=== PATIENT | female | born 1960 | race Hispanic/Latino ===

== ENCOUNTER 2017-04-26 09:26 | Outpatient (CLI) | payer OTHER | END 2017-04-26 09:27 | disposition home or self-care (01) | LOC: BICULT 09:26 | PROVIDERS: ATTEND Family Medicine | DX: D25.9 Leiomyoma of uterus, unspecified (principal) | CPT/HCPCS: 76856 ==

== ENCOUNTER 2017-05-05 12:53 | Outpatient (CLI) | payer OTHER | END 2017-05-05 12:54 | disposition home or self-care (01) | LOC: BICMAMMO 12:53 | PROVIDERS: ATTEND Family Medicine | DX: Z12.31 Encounter for screening mammogram for malignant neoplasm of breast (principal) | CPT/HCPCS: 77063; 77067 ==

== ENCOUNTER 2017-07-20 08:30 | Inpatient (IN) | payer OTHER ==
[2017-07-20 09:00] VITALS: BMI 37.5
[2017-07-27] MEDS ORDERED: Sodium Chloride 0.9% 100 ML ONE (05:54)
[2017-07-27] MEDS ORDERED: Levofloxacin 500 mg/D5W 100 ml Premix Bag ONE (05:54)
[2017-07-27] MEDS ORDERED: Fentanyl 100 MCG/2 ML VIAL ONE ×2 (06:13→07:43)
[2017-07-27] MEDS ORDERED: Midazolam HCl 2 mg/2 ml Vial ONE (06:13)
[2017-07-27] MEDS ORDERED: Vancomycin HCl 1.5 GM in Sodium Chloride 0.9% 250 ML 300 ML IVPB SCH ×2 (06:15→18:00)
[2017-07-27] MEDS ORDERED: HYDROcodone/Acetaminophen 10/325 mg Tablet PO PRN ×2 (06:57)
[2017-07-27] MEDS ORDERED: Promethazine HCl 25 MG/ML VIAL IM PRN ×3 (06:57→08:43)
[2017-07-27] MEDS ORDERED: Zolpidem Tartrate 5 MG TAB PO PRN ×2 (06:57→07:02)
[2017-07-27] MEDS ORDERED: traMADol HCl 50 MG TAB PO PRN ×3 (06:57→07:02)
[2017-07-27] MEDS ORDERED: Fentanyl 100 MCG/2 ML VIAL IV PRN (06:57)
[2017-07-27] MEDS ORDERED: Ondansetron HCl/PF 4 MG/2 ML Vial IVP PRN ×3 (06:57→08:43)
[2017-07-27] MEDS ORDERED: Bupivacaine 0.5% 50 ML in Sodium Chloride 0.9% 50 ML NERVE BLCK SCH (06:57)
[2017-07-27] MEDS ORDERED: Acetaminophen 325 MG TAB PO PRN (07:02)
[2017-07-27] MEDS ORDERED: Fentanyl 100 MCG/2 ML VIAL SLOW IVP PRN ×2 (07:02)
[2017-07-27] MEDS ORDERED: diphenhydrAMINE 25 MG CAP PO PRN (07:02)
[2017-07-27] MEDS ORDERED: Tranexamic Acid 1,000 MG in Sodium Chloride 0.9% 100 ML IVPB SCH (07:15)
[2017-07-27] MEDS ORDERED: Promethazine HCl 25 MG/ML VIAL SLOW IVP PRN (08:43)
--- NOTE | 2017-07-27 09:30 | OP ---
DATE OF PROCEDURE: 07/27/2017 PREOPERATIVE DIAGNOSIS: Degenerative joint disease left knee. POSTOPERATIVE DIAGNOSIS: Degenerative joint disease left knee. SURGEON: Ten Jarrett M.D. AVIATION ENGINEER: Alexey Fortune PA-C. BLOOD LOSS: Minimal. SPECIMEN: None. DRAINS: None. COMPLICATIONS: None. TITLE OF PROCEDURE: Left total knee replacement using [place] [employer] 3 femur, 3 tibia, 9 mm CSX3 polyethylene, and A27 patella. PROCEDURE IN DETAIL: After informed consent was obtained in the preoperative holding area. The tanner ent was taken to the operative suite where general anesthesia was induced. Once adequate level of ge neral anesthesia was obtained, the patient was positioned and a well-padded tourniquet was placed nelson und the left proximal thigh. The left lower extremity was then prepped and draped in the usual steri le fashion. Prior to exsanguination, a time out was called and all members of the surgical team agre ed upon site, surgeon, and patient. The extremity was then exsanguinated and the tourniquet was rais ed. A midline longitudinal incision was then made directly over the patella extending two fingerbrea dths above the superior pole of the patella and two fingerbreadths inferior to the inferior patellar pole of the patella. Deeper subcutaneous layers were dissected sharply and local bleeding was contro lled with Bovie electrocautery. A quad tendon longitudinal split was then made sharply and a median parapatellar arthrotomy was carried out both sharp and with Bovie electrocautery, carried down to one fingerbreadth medial to the tibial tubercle. The knee was then placed into flexion and the patella was everted nicely, and a copious fat pad ectomy was performed allowing for greater exposure of the t ibia. The computer-assisted distal femoral fiducial was then placed and pinned firmly, and the dista l femoral cutting guide was pinned firmly into place. The oscillating saw was then used to remove th e appropriate amount of bone. The 4-in-1 cutting block was then placed on the distal femur and the o scillating saw was used to remove the appropriate amount of bone off of the anterior, posterior, and chamfer cuts. After completion of bone cuts, the anterior cruciate ligament was resected sharply and the posterior cruciate ligament retractor was placed and the tibia was subluxed for better exposure. Partial meniscectomies were carried out, and the tibial computer-assisted fiducial was pinned, and the cutting guide was placed. Oscillating saw was then used to remove the bone with Hohmann retracto rs used to take care and protect the collateral ligaments. After the tibial resection was performed, a laminar pairing machine operator was placed in between the freshened bone cuts. The knee placed at 90 degrees and further bilateral meniscectomies were carried out, and the curved osteotome and curettage was used t o remove any excess bone spurs in the posterior compartment. The trial femoral component, tibial bas eplate were placed with the appropriate polyethylene trial insert with an appropriate polyethylene sp acer and patellar button. The knee was taken through full range of motion with flexion and extension from 0-90 degrees and patellar broach squarely in the trochlea without any squinting or subluxation noted. The knee was also stable to varus and valgus stressing at 0, 15, 45, and 90 degrees of flexio n. The drawer was negative. All trial components were then removed and the keel punch was used to pr ovide the appropriate defect in the tibia with a mallet. The freshened bone cuts were copiously irri gated with pulsatile lavage of about 1-1/2 liters to remove all excess debris. The freshened bone cu ts were then dried and with suction and lap sponge. The knee was placed in flexion and retractors we re placed to provide access to all bone cuts. Tobramycin impregnated methyl methacrylate cement was then placed on the freshened bone cuts and implants which were malleted firmly into place. Curettage and Graham elevators were used to remove any excess bone cement. The knee was placed into full exten iglesia and the patellar button was placed under compression, and the cement was allowed to cure. Once completed, the components were again taken through full range of motion and copious irrigation of the knee was carried out with another liter of normal saline. All components were inspected fully with full range of motion and varus and valgus stressing. There was no laxity noted and full extension was observed clinically. Primary closure was accomplished with #2 interrupted Vicryl stitch of the arth rotomy defect. This was oversewn with a #2 running Quill barbed stitch. The gravitational platelet system was then injected into the arthrotomy prior to closure. The subcutaneous layer was then close d with a running 0 barbed Monocryl stitch and skin closure accomplished with a running subcuticular 3 -0 Monocryl barbed Quill stitch and augmented with cement on the skin. Tourniquet was lowered. Good spontaneous return of distal pulses was noted clinically and a sterile dressing was applied to the i ncision. The procedure was terminated without any complications. The patient was awakened in the op erative suite and the tourniquet was removed, and the patient was taken to the recovery room in stabl e condition.
[2017-07-27] MEDS: Aspirin 81 mg Enteric Coated Tablet PO SCH ×2 (10:13→21:12)
[2017-07-27] MEDS: Ferrous Gluconate 324 MG TAB PO SCH ×2 (10:13→21:12)
[2017-07-27] MEDS: Sodium Chloride 0.9% 1,000 ML IV SCH ×2 (10:13→15:49)
[2017-07-27] MEDS: Loratadine 10 MG TAB PO SCH (10:13)
[2017-07-27] MEDS: Calcium Carbonate + Vit D 1 TAB PO SCH ×2 (10:13→21:12)
[2017-07-27] MEDS: Multivitamin W/ Minerals 1 TAB PO SCH (10:14)
[2017-07-27] MEDS: Senokot S 8.6-50 MG TAB PO SCH ×2 (10:14→21:13)
--- NOTE | 2017-07-27 10:17 | RAD ---
TWO VIEWS LEFT KNEE: Date: 07-27-17 History: Post-operative left total knee prosthesis. Comparison: 08-27-16 FINDINGS: There has been interval post-surgical changes related to placement of left total knee prosthesis. No hardware complication is seen. Subcutaneous edema and emphysema are seen about the knee related to po st-surgical change. There is no fracture, dislocation, or other osseous abnormality. IMPRESSION: Post-surgical changes related to recent placement of left total knee replacement. POS: KELL
[2017-07-27] MEDS ORDERED: Dextrose 5% in Water 1,000 ML IV PRN (11:57)
[2017-07-27] MEDS ORDERED: hydrALAZINE 25 MG TAB PO PRN (11:57)
[2017-07-27] MEDS ORDERED: Dextrose 50% Abboject 50 ML SYRINGE SLOW IVP PRN (11:57)
[2017-07-27] MEDS ORDERED: HumaLOG 300 UNITS/3 ML VIAL SC PRN (11:57)
--- NOTE | 2017-07-27 12:20 | CON ---
DATE OF CONSULTATION: 07/27/2017 PRIMARY CARE PHYSICIAN: Pepe Perez M.D. ATTENDING PHYSICIAN: Ten Jarrett M.D. REASON FOR ADMISSION: Elective left total knee replacement. REASON FOR CONSULTATION: Aid in medical management. HISTORY OF PRESENT ILLNESS: Ms. Luis Schwarz is a pleasant 56-year-old female who has a his tory of diabetes mellitus which is diet controlled. She has severe osteoarthritis of the left knee. This has failed outpatient treatment and the patient is admitted currently for an elective left tota l knee replacement. The patient has undergone surgery and currently has no complaints. Her blood gl ucose is usually well controlled and currently her pain is well controlled. REVIEW OF SYSTEM: The review of systems is essentially negative. She denies any headaches or dizzin ess, no chest pain or shortness of breath, no nausea, no vomiting, etc. PAST MEDICAL HISTORY: Significant for diabetes mellitus and osteoarthritis of the left knee. PAST SURGICAL HISTORY: She has had a laparoscopic cholecystectomy. ALLERGIES: PENICILLIN, METFORMIN. SOCIAL HISTORY: She is . She is a nonsmoker, nondrinker. FAMILY HISTORY: Significant for heart disease in her father and diabetes mellitus in her mother. MEDICATIONS: Meloxicam 7.5 mg 1-2 tablets daily, ranitidine as needed, prednisone, Tylenol as needed , Tessalon Perles and Zyrtec and calcium carbonate plus vitamin D. PHYSICAL EXAMINATION: GENERAL: She is alert and oriented. She appears to be in no acute distress. VITAL SIGNS: Blood pressure was 127/78, heart rate 81, respiratory rate of 16, temperature is 97.9. HEENT: Her pupils are equal, round, and reactive. Extraocular muscles are intact. Sclerae are anic teric. Throat: There is no erythema, no exudates. NECK: No adenopathy, no bruits. LUNGS: Clear to auscultation. There is no wheezing, no rales. CARDIOVASCULAR: She has a normal S1, S2. I did not appreciate an S3 or S4. No murmurs, clicks or r ubs. ABDOMEN: Obese, it is soft, it is nontender, nondistended. Positive for bowel sounds. No rebound o r guarding. EXTREMITIES: There is no clubbing, cyanosis, no edema. NEUROLOGIC: The exam is nonfocal. LABORATORY DATA: Lab results were done on 07/20/2017 and these were reviewed and are essentially nor mal. She also had an EKG done at that time which was normal as well as a chest x-ray which there was no acute cardiopulmonary changes. ASSESSMENT: This is a pleasant 56-year-old female that is admitted for an elective left total knee r eplacement. She is status post surgery and doing clinically very well. Her blood pressure is well c ontrolled. Currently, we are waiting the initial blood glucose following surgery. We will maintain her on sliding scale insulin as well as a diabetic diet and p.r.n. medications if needed for her bloo d pressure. Otherwise, we will be happy to follow along with you.
[2017-07-27] MEDS: Ketorolac Tromethamine 30 MG/ML VIAL IVP SCH ×2 (12:22→18:44)
[2017-07-28] MEDS: Ketorolac Tromethamine 30 MG/ML VIAL IVP SCH ×3 (00:12→13:07)
[2017-07-28 05:21] LABS: Hemoglobin 12.5 g/dL (12.0-16.0); Mean Corpuscular HGB CONC 34.7 g/dL (32.0-36.0); Mean Corpuscular Hemoglobin 31.2 pg (27.0-31.0); Mean Corpuscular Volume 89.8 fL (78.0-98.0); Mean Platelet Volume 7.8 fL (7.4-10.4); Platelet Count 174 thou/uL (130-400); RBC Distribution Width 11.6 % (11.5-14.5); Red Blood Cell (RBC) Count 4.01 mill/uL (4.20-5.40); White Blood Cell (WBC) Count 8.7 thou/uL (4.8-10.8)
[2017-07-28] MEDS: Sodium Chloride 0.9% 1,000 ML IV SCH (05:40)
[2017-07-28] MEDS: Multivitamin W/ Minerals 1 TAB PO SCH (08:59)
[2017-07-28] MEDS: Loratadine 10 MG TAB PO SCH (08:59)
[2017-07-28] MEDS: Ferrous Gluconate 324 MG TAB PO SCH (08:59)
[2017-07-28] MEDS: Calcium Carbonate + Vit D 1 TAB PO SCH (08:59)
[2017-07-28] MEDS: Aspirin 81 mg Enteric Coated Tablet PO SCH (08:59)
[2017-07-28] MEDS: Senokot S 8.6-50 MG TAB PO SCH (09:03)
[2017-07-28] MEDS ORDERED: Ropivacaine 0.2% 550 ML 550 ML NERVE BLCK SCH (10:15)
[2017-07-28 11:28] VITALS: BP 132/84; TEMP 98.7
== END 2017-07-28 15:10 | disposition home or self-care (01) | DRG 470 ==
LOC: SJJU 07-27 05:32
PROVIDERS: ADMIT Orthopaedic Surgery; ATTEND Orthopaedic Surgery
PROC: 0SRD0J9 Replacement of Left Knee Joint with Synthetic Substitute, Cemented, Open Approach (ICD-10-PCS; principal; 2017-07-27)
DX: M17.12 Unilateral primary osteoarthritis, left knee (principal); E11.9 Type 2 diabetes mellitus without complications
CPT/HCPCS: 36415; 36416; 85027; A4306; C1713; C1776; G8978-GP-CJ; G8979-GP-CI; J1885; J1956; J2250; J2795; J3010; J3370; J3490; J7050

== ENCOUNTER 2017-07-20 08:37 | Outpatient (CLI) | payer OTHER ==
[2017-07-20 10:18] LABS: Bilirubin Negative (Negative); Blood, Urine Negative (Negative); Clarity CLEAR (Clear); Glucose, Urine (Dipstick) Negative (Negative); Leukocyte Negative (Negative); Nitrite Negative (Negative); Protein, Urine (Dipstick) Negative (Neg-Trace); Specific Gravity, Urine 1.006 (1.002-1.036); Urobilinogen 0.2 mg/dL (0.2-1.0)
[2017-07-20 10:19] LABS: #Eosinphils 0.2 thou/uL (0.0-0.7); #Lymphocytes 2.8 thou/uL (1.20-3.40); #Monocytes 0.5 thou/uL (0.11-0.59); %Basophils 0.3 % (0.0-1.0); %Eosinophils 2.5 % (0.0-10.0); %Lymphocytes 43.3 % (21.0-51.0); %Neutrophils 46.9 % (42.0-75.0); Bacteria/HPF None Seen HPF (None Seen); Hyaline Casts/LPF 0-3 HYALINE CAST LPF (0-3 Hyaline); Mean Corpuscular HGB CONC 34.2 g/dL (32.0-36.0); Mean Corpuscular Hemoglobin 30.8 pg (27.0-31.0); Mean Corpuscular Volume 90.2 fl (81.0-99.0); Mean Platelet Volume 7.8 fL (7.4-10.4); Platelet Count 222 thou/uL (130-400); RBC Distribution Width 11.4 % (11.5-14.5); RBC/HPF 0-3 HPF (0-3); Red Blood Cell (RBC) Count 4.88 mill/uL (4.20-5.40); Squamous Epithelial None Seen HPF (0-3); WBC/HPF None Seen HPF (0-3); White Blood Cell (WBC) Count 6.5 thou/uL (4.8-10.8)
[2017-07-20 10:20] LABS: INR-International Normal Ratio 1.1; Prothrombin Time 13.9 SEC (12.0-14.7)
[2017-07-20 10:39] LABS: Anion Gap 13 mmol/L (10-20); BUN (Urea Nitrogen) 13 mg/dL (9.8-20.1); Calc. Creatinine Clearance 0 mL/min (70-130); Calcium 9.6 mg/dL (7.8-10.44); Carbon Dioxide 23 mmol/L (22-29); Chloride 107 mmol/L (98-107); Estimated GFR-MDRD Greater than 90; Glucose 92 mg/dL (70-105); Potassium 4.4 mmol/L (3.5-5.1); Sodium 139 mmol/L (136-145)
--- NOTE | 2017-07-20 11:43 | RAD ---
CHEST 2 VIEWS: Date: 07/20/17 HISTORY: Preop. COMPARISON: None. FINDINGS: Lungs are clear. No pneumothorax or effusion. Cardiac silhouette and mediastinal contours within norm al limits. IMPRESSION: No acute intrathoracic abnormality. POS: LUIS MANUELH
--- NOTE | 2017-07-20 13:29 | EKG ---
Test Reason : Blood Pressure : / mmHG Vent. Rate : 076 BPM Atrial Rate : 076 BPM P-R Int : 140 ms QRS Dur : 074 ms QT Int : 376 ms P-R-T Axes : 015 033 027 degrees QTc Int : 423 ms Normal sinus rhythm Normal ECG Confirmed by CATARINA MENDOZA ([id number]) on 07/20/2017 1:29:42 PM Referred By: RUSS Confirmed By:CATARINA MENDOZA
== END 2017-07-20 08:38 | disposition home or self-care (01) ==
LOC: LABBT 08:37
PROVIDERS: ATTEND Orthopaedic Surgery
DX: Z01.818 Encounter for other preprocedural examination (principal); M17.12 Unilateral primary osteoarthritis, left knee
CPT/HCPCS: 71046; 80048; 81001; 85025; 85610; 86850; 86900; 86901; 87081; 93005; 93010

== ENCOUNTER 2018-07-20 09:02 | Outpatient (CLI) | payer OTHER ==
--- NOTE | 2018-07-20 09:38 | MMO ---
Bilateral MAMMO Bilat Screen [facility]. CLINICAL HISTORY: Patient is 57 years old and is seen for screening. The patient has no family history of breast cancer. The patient has no personal history of cancer. VIEWS: The views performed were: bilateral craniocaudal with tomosynthesis; bilateral mediolateral oblique with tomosynthesis; and bilateral exaggerated craniocaudal. FILMS COMPARED: The present examination has been compared to prior imaging studies performed at and 05/05/2017. MAMMOGRAM FINDINGS: The breasts are heterogeneously dense, which could obscure a lesion on mammography. There are no suspicious masses, suspicious calcifications, or new areas of architectural distortion. IMPRESSION: THERE IS NO MAMMOGRAPHIC EVIDENCE OF MALIGNANCY. A ROUTINE FOLLOW-UP MAMMOGRAM IN 1 YEAR IS RECOMMENDED. THE RESULTS OF THIS EXAM WERE SENT TO THE PATIENT. ACR BI-RADS Category 1 - Negative MAMMOGRAPHY NOTE: 1. A negative mammogram report should not delay a biopsy if a dominant of clinically suspicious mass is present. 2. Approximately 10% to 15% of breast cancers are not detected by mammography. 3. Adenosis and dense breasts may obscure an underlying neoplasm.
== END 2018-07-20 09:03 | disposition home or self-care (01) ==
LOC: BICMAMMO 09:02
PROVIDERS: ATTEND Family Medicine
DX: Z12.31 Encounter for screening mammogram for malignant neoplasm of breast (principal)
CPT/HCPCS: 77063; 77067

== ENCOUNTER 2018-10-14 09:00 | Outpatient (CLI) | payer OTHER ==
--- NOTE | 2018-10-14 10:56 | MRI ---
MRI BRAIN NONCONTRAST: DATE: 10/14/2018 HISTORY: 58-year-old female with seizure FINDINGS: The ventricles are normal in size and configuration. There is a punctate focus of T2 hyperintensity i n the left frontal masterson radiata. This solitary focal deep white matter signal abnormality is nonspecific. It could represent a minimal focus of chronic ischemic white matter change or a migraine lesion. There is no major intra-axial signal abnormality, restricted diffusion, midline shift or any other mass effect, recent intra-axial hemorrhage, or extra-axial fluid collection. IMPRESSION: Essentially normal.
== END 2018-10-14 09:01 | disposition home or self-care (01) ==
LOC: BICMRI 09:00
PROVIDERS: ATTEND Family Medicine
DX: R56.9 Unspecified convulsions (principal)
CPT/HCPCS: 70551

== ENCOUNTER 2019-11-03 11:26 | Outpatient (CLI) | payer OTHER ==
--- NOTE | 2019-11-03 14:22 | MMO ---
Bilateral MAMMO Bilat Screen [facility]. CLINICAL HISTORY: Patient is 59 years old and is seen for screening. The patient has no family history of breast cancer. The patient has no personal history of cancer. VIEWS: The views performed were: bilateral craniocaudal with tomosynthesis and bilateral mediolateral oblique with tomosynthesis. FILMS COMPARED: The present examination has been compared to prior imaging studies performed at 05/09/2014, 05/05/2017 and 07/20/2018. This study has been interpreted with the assistance of computer-aided detection. MAMMOGRAM FINDINGS: The breasts are heterogeneously dense, which could obscure a lesion on mammography. There are no suspicious masses, suspicious calcifications, or new areas of architectural distortion. IMPRESSION: THERE IS NO MAMMOGRAPHIC EVIDENCE OF MALIGNANCY. A ROUTINE FOLLOW-UP MAMMOGRAM IN 1 YEAR IS RECOMMENDED. THE RESULTS OF THIS EXAM WERE SENT TO THE PATIENT. ACR BI-RADS Category 1 - Negative MAMMOGRAPHY NOTE: 1. A negative mammogram report should not delay a biopsy if a dominant of clinically suspicious mass is present. 2. Approximately 10% to 15% of breast cancers are not detected by mammography. 3. Adenosis and dense breasts may obscure an underlying neoplasm. Reported by: REGINA ALFARO MD Electonically Signed: [id number]
== END 2019-11-03 11:27 | disposition home or self-care (01) ==
LOC: BICMAMMO 11:26
PROVIDERS: ATTEND Family Medicine
DX: Z12.31 Encounter for screening mammogram for malignant neoplasm of breast (principal)
CPT/HCPCS: 77063; 77067

== ENCOUNTER 2022-03-23 08:47 | Outpatient (CLI) | payer BC | END 2022-03-23 08:48 | disposition home or self-care (01) | LOC: BICMAMMO 08:47 | PROVIDERS: ATTEND Family Medicine | DX: Z12.31 Encounter for screening mammogram for malignant neoplasm of breast (principal); R92.1 Mammographic calcification found on diagnostic imaging of breast | CPT/HCPCS: 77063; 77067 ==

== ENCOUNTER 2022-03-27 08:22 | Outpatient (CLI) | payer BC | END 2022-03-27 08:23 | disposition home or self-care (01) | LOC: BICMAMMO 08:22 | PROVIDERS: ATTEND Family Medicine | DX: R92.1 Mammographic calcification found on diagnostic imaging of breast (principal) | CPT/HCPCS: G0279 ==

== ENCOUNTER → 2022-04-02 | Day surgery (SDC) | payer BC | END | disposition home or self-care (01) | LOC: MAMMO 06:45 | PROVIDERS: ATTEND Family Medicine | PROC: 0H9U3ZX Drainage of Left Breast, Percutaneous Approach, Diagnostic (ICD-10-PCS; principal; 2022-04-02) | DX: D05.12 Intraductal carcinoma in situ of left breast (principal); Z88.0 Allergy status to penicillin; Z88.8 Allergy status to other drugs, medicaments and biological substances | CPT/HCPCS: 19081; 76098; 88305; A4648 ==

== ENCOUNTER 2022-07-16 06:20 | Day surgery (SDC) | payer BC ==
[2022-07-13 10:06] VITALS: BMI 42.1
[2022-07-16] MEDS ORDERED: Acetaminophen 500 MG TAB ONE (08:37)
[2022-07-16] MEDS ORDERED: Ketorolac Tromethamine 30 MG/ML VIAL ONE (08:37)
[2022-07-16] MEDS ORDERED: CEFAZOLIN 2 GM VIAL ONE (09:52)
[2022-07-16] MEDS ORDERED: Sodium Chloride 0.9% 100 ML ONE (09:52)
[2022-07-16] MEDS ORDERED: fentaNYL PF 100 MCG/2 ML SYRINGE ONE (09:55)
[2022-07-16] MEDS ORDERED: Ondansetron PF 4 MG/2 ML Vial ONE (10:04)
[2022-07-16] MEDS ORDERED: PROPOFOL 200 MG/20 ML VIAL ONE (10:04)
[2022-07-16] MEDS ORDERED: Lidocaine 1% PF 5 ML VIAL ONE (10:04)
[2022-07-16] MEDS ORDERED: Lidocaine 2% PF 5 ML VIAL ONE (10:12)
[2022-07-16] MEDS ORDERED: Bupivacaine/Epinephrine 0.25% 30 ML VIAL ONE (10:12)
[2022-07-16] MEDS ORDERED: HYDROmorphone 2 MG/ML VIAL SLOW IVP PRN (10:40)
[2022-07-16] MEDS ORDERED: Ondansetron HCl/PF 4 MG/2 ML Vial IVP PRN (10:40)
[2022-07-16] MEDS ORDERED: Promethazine HCl 25 MG/ML VIAL IM PRN (10:40)
== END 2022-07-16 13:18 | disposition home or self-care (01) ==
LOC: SDC 06:20
PROVIDERS: ATTEND Specialist
DX: D05.12 Intraductal carcinoma in situ of left breast (principal); E11.9 Type 2 diabetes mellitus without complications; Z96.652 Presence of left artificial knee joint; Z88.0 Allergy status to penicillin; Z88.8 Allergy status to other drugs, medicaments and biological substances
CPT/HCPCS: 19281; 76098; 88307; 88341; 88342; C1713; J1885; J2001; J2405; J2704; J3490

== ENCOUNTER 2023-02-23 12:04 | Outpatient (CLI) | payer BC | END 2023-02-23 12:05 | disposition home or self-care (01) | LOC: RAD 12:04 | PROVIDERS: ATTEND Physician Assistant | DX: S69.91XA Unspecified injury of right wrist, hand and finger(s), initial encounter (principal); S52.501A Unspecified fracture of the lower end of right radius, initial encounter for closed fracture; W00.9XXA Unspecified fall due to ice and snow, initial encounter ==

== ENCOUNTER 2023-08-04 13:05 | Outpatient (CLI) | payer BC | END 2023-08-04 13:06 | disposition home or self-care (01) | LOC: BICMAMMO 13:05 | PROVIDERS: ATTEND Specialist | DX: Z08 Encounter for follow-up examination after completed treatment for malignant neoplasm (principal); Z86.000 Personal history of in-situ neoplasm of breast | CPT/HCPCS: 77066; G0279 ==